=== PATIENT | male | born 1945 | race Caucasian/White ===

== ENCOUNTER 2017-05-27 14:19 | Inpatient (IN) | payer MEDICARE, BC ==
[~2017-05-27] VITALS: Ht 177.8 cm; Wt 108.9 kg
--- NOTE | 2017-05-27 14:45 | NUR ---
DR ALVAREZ AT THE BEDSIDE FOR EVAL AND EXAM.
[2017-05-27] MEDS ORDERED: OCTREOTIDE ACETATE 100 MCG/1 MLVIAL SQ STA (14:51)
[2017-05-27 15:10] LABS: BASOPHILS # (AUTO) 0.1 K/uL (0.0-8.0); BASOPHILS % (AUTO) 1.1 % (0.0-2.0); EOSINOPHILS # (AUTO) 0.1 K/uL (0.0-0.7); EOSINOPHILS % (AUTO) 1.3 % (0.0-7.0); HEMATOCRIT 35.8 % (31.2-41.9); HEMOGLOBIN 11.4 g/dL (10.9-14.3); LYMPHOCYTES # (AUTO) 0.3 K/uL (20.0-40.0); LYMPHOCYTES % (AUTO) 5.8 % (20.5-51.5); MEAN CORPUSCULAR HEMOGLOBIN 28.8 uug (24.7-32.8); MEAN CORPUSCULAR HGB CONC 32 g/dL (32.3-35.6); MEAN CORPUSCULAR VOLUME 90.4 fL (75.5-95.3); MONOCYTES # (AUTO) 1.1 K/uL (2.0-10.0); MONOCYTES % (AUTO) 19.5 % (0.0-11.0); NEUTROPHILS # (AUTO) 4.2 K/uL (1.8-8.9); NEUTROPHILS % (AUTO) 72.3 % (38.5-71.5); PLATELET COUNT (AUTO) 156 K/uL (179-408); RED BLOOD CELL COUNT(AUTO) 3.96 MIL/uL (3.63-4.92); WHITE BLOOD COUNT (AUTO) 5.8 K/uL (3.8-11.8)
[2017-05-27] MEDS ORDERED: OCTREOTIDE ACETATE 500 MCG/1 ML VIAL ONE (15:22)
[2017-05-27 15:24] LABS: BILIRUBIN,TOTAL 1.1 mg/dL (0.2-1.0); CREATININE 6.1 mg/dL (0.6-1.3); POTASSIUM 4.4 mmol/L (3.5-5.1); TOTAL PROTEIN, SERUM 6.2 g/dL (6.4-8.2)
[2017-05-27] MEDS ORDERED: CALC0.253 PO (15:54)
[2017-05-27] MEDS ORDERED: VIT1CAPS9 PO (15:54)
[2017-05-27] MEDS ORDERED: PLAVIX PO (15:54)
[2017-05-27] MEDS ORDERED: CHOL200026 PO (15:54)
[2017-05-27] MEDS ORDERED: AMBIEN PO (15:54)
[2017-05-27] MEDS ORDERED: DIGOXIN PO (15:54)
[2017-05-27] MEDS ORDERED: SIMV40TA5 PO (15:54)
[2017-05-27] MEDS ORDERED: TRAZODONE PO (15:54)
[2017-05-27] MEDS ORDERED: METOPROLOL PO (15:54)
[2017-05-27] MEDS ORDERED: VITA400C68 PO (15:54)
[2017-05-27] MEDS ORDERED: GLYB5TAB7 PO (15:54)
[2017-05-27] MEDS ORDERED: LANTUS (15:54)
[2017-05-27] MEDS ORDERED: ELIQUIS PO (15:54)
--- NOTE | 2017-05-27 16:03 | NUR ---
[facility] SWAB COLLECTED AND SENT TO LAB. BELONGING LIST COMPLETED.
[2017-05-27 16:19] LABS: BAND % (MANUAL) 2 % (0-10); BASOPHILS % (MANUAL) 1 % (0-2); EOSINOPHILS % (MANUAL) 1 % (0-8); LYMPHOCYTES % (MANUAL) 6 % (20-40); MONOCYTES % (MANUAL) 17 % (2-10); NEUTROPHILS % (MANUAL) 73 % (42-75)
--- NOTE | 2017-05-27 16:45 | NUR ---
ADMITTED FROM HOME A 71 YO MALE WITH ADM DX OF HYPOGLYCEMIA A/A ORIENTED X4, WARM AND DRY SKIN WITH SS OF DISTRESS. DR OH NOTIFIED OF ADM WITH ORDERS. ADMISSION ASSESSMENT DONE. CONTROLLED AFIB ON MONITOR
[2017-05-27 17:08] VITALS: BP 144/83
[2017-05-27] MEDS ORDERED: ACETAMINOPHEN 325 MG TABLET PO PRN (17:45)
[2017-05-27] MEDS ORDERED: ONDANSETRON 4 MG/2 ML VIAL IV PRN (17:45)
[2017-05-27] MEDS ORDERED: DEXTROSE 50% 50 ML DISP.SYRIN IV PRN (17:45)
[2017-05-27] MEDS: BLOOD SUGAR DIAGNOSTIC 1 EACH STRIP VI SCH ×2 (17:52→21:07)
--- NOTE | 2017-05-27 19:10 | NUR ---
Received patient awake during initial rounds. Denies any pain/discomforts at this time. No s/s of hypo/hyperglycemia. AVA AVF dressing dry and intact. Continue care as planned.
[2017-05-27 20:11] VITALS: BP 147/86
--- NOTE | 2017-05-27 20:35 | NUR ---
Family at bedside.
[2017-05-27] MEDS: METOPROLOL TARTRATE 25 MG TABLET PO SCH (21:08)
[2017-05-27] MEDS: SIMVASTATIN 40 MG TABLET PO SCH (21:10)
[2017-05-27] MEDS: INSULIN REGULAR, HUMAN 300 UNIT/3 ML VIAL SQ PRN (21:13)
[2017-05-27] MEDS: ZOLPIDEM 5 MG TABLET PO PRN (21:15)
[2017-05-28] VITALS: BP 143/84
[2017-05-28 04:00] VITALS: BP 135/84
--- NOTE | 2017-05-28 04:25 | NUR ---
In and out his room. Quite confused and disoriented. Re oriented to place and situation. Several times he kept removing his monitor box. Close supervision rendered.
--- NOTE | 2017-05-28 05:50 | NUR ---
BS 37mg/dl. [place] juice given . Will recheck BS after 30 minutes. Pt denies any s/s of hypoglycemia
[2017-05-28] MEDS: BLOOD SUGAR DIAGNOSTIC 1 EACH STRIP VI SCH ×5 (06:27→21:16)
--- NOTE | 2017-05-28 06:29 | NUR ---
BS now 94 mg/dl. Denies any s/s . Will endorse to oncoming shift.
[2017-05-28 06:56] LABS: BASOPHILS # (AUTO) 0.1 K/uL (0.0-8.0); BASOPHILS % (AUTO) 1.4 % (0.0-2.0); EOSINOPHILS # (AUTO) 0.1 K/uL (0.0-0.7); EOSINOPHILS % (AUTO) 0.9 % (0.0-7.0); HEMATOCRIT 37.5 % (36.7-47.1); HEMOGLOBIN 12.1 g/dL (12.5-16.3); LYMPHOCYTES # (AUTO) 0.6 K/uL (20.0-40.0); LYMPHOCYTES % (AUTO) 8.5 % (20.5-51.5); MEAN CORPUSCULAR HEMOGLOBIN 29.3 uug (23.8-33.4); MEAN CORPUSCULAR HGB CONC 32 g/dL (32.5-36.3); MEAN CORPUSCULAR VOLUME 90.4 fL (73.0-96.2); MONOCYTES # (AUTO) 1.6 K/uL (2.0-10.0); MONOCYTES % (AUTO) 24.1 % (0.0-11.0); NEUTROPHILS # (AUTO) 4.4 K/uL (1.8-8.9); NEUTROPHILS % (AUTO) 65.1 % (38.5-71.5); PLATELET COUNT (AUTO) 188 K/uL (152-348); RED BLOOD CELL COUNT(AUTO) 4.15 MIL/uL (4.06-5.63); WHITE BLOOD COUNT (AUTO) 6.8 K/uL (3.6-10.2)
[2017-05-28 07:50] LABS: THYROID STIMULATING HORMONE 1.864 mIU/mL (0.358-3.740)
--- NOTE | 2017-05-28 08:00 | NUR ---
PATIENT CONTINUE TO BE VERY CONFUSED, TRIED TO LEAVE THE UNIT REDIRECTED TO ROOM. NO SS OF PAIN OR DISTRESS. BS 46 WARM AND DRY SKIN APPLE JUICE WITH SUGAR GIVEN AND OBSERVE.
[2017-05-28] MEDS: METOPROLOL TARTRATE 25 MG TABLET PO SCH ×2 (08:43→20:41)
[2017-05-28] MEDS: CALCITRIOL 0.25 MCG CAPSULE PO SCH (08:43)
[2017-05-28] MEDS ORDERED: APIXABAN 5 MG TABLET PO SCH (09:00)
[2017-05-28] MEDS ORDERED: CLOPIDOGREL 75 MG TABLET PO SCH (09:00)
--- NOTE | 2017-05-28 09:00 | NUR ---
BS RECHECKED 92, REMAINS ASYMPTOMATIC. ATE 100% OF BREAKFAST. REMAINS AFIB ON MONITOR (CONTROLLED) DENIES PAIN
[2017-05-28 09:15] LABS: BILIRUBIN,TOTAL 0.9 mg/dL (0.2-1.0); CREATININE 7.2 mg/dL (0.6-1.3); MAGNESIUM 2.3 mg/dL (1.8-2.4); PHOSPHOROUS 7.4 mg/dL (2.5-4.9); POTASSIUM 5.4 mmol/L (3.5-5.1); TOTAL PROTEIN, SERUM 6.8 g/dL (6.4-8.2)
[2017-05-28 09:36] LABS: DIGOXIN 0.6 ng/mL (0.9-2.0)
--- NOTE | 2017-05-28 10:30 | NUR ---
HD STARTED AT BEDSIDE, SEEN ALSO BY DR OH AND DR TELLEZ SEE NOTES
[2017-05-28 11:04] VITALS: BP 138/72
[2017-05-28 11:11] LABS: LYMPHOCYTES % (MANUAL) 3 % (20-40); MONOCYTES % (MANUAL) 23 % (2-10); NEUTROPHILS % (MANUAL) 74 % (42-75)
--- NOTE | 2017-05-28 13:00 | NUR ---
HD COMPLETED PATIENT TOLERATED PROCEDURE WELL
[2017-05-28] MEDS: DIGOXIN 125 MCG TABLET PO SCH (13:54)
[2017-05-28 15:29] VITALS: BP 150/84
--- NOTE | 2017-05-28 15:42 | NUR ---
PATIENT VERY CONFUSED AND TRIED TO GET OFF THE UNIT, PULLED HL AND HEART MONITOR PLACED ON 1:1 SITTER AND PLACED CLOSE TO NURSING STATION. NOTIFIED OF ROOM CHANGE AND PT STATUS. AGREED TO BE MOVED TO ROOM 209
[2017-05-28 19:00] VITALS: BP 145/88
[2017-05-28] MEDS: APIXABAN 5 MG PO SCH (19:52)
[2017-05-28] MEDS: SIMVASTATIN 40 MG TABLET PO SCH (20:40)
[2017-05-28] MEDS ORDERED: TRAZODONE 50 MG TABLET PO SCH (21:00)
--- NOTE | 2017-05-28 22:00 | NUR ---
pt is restless. continually trying to get out of bed. needs frequent redirection. PRN ambien was given at this time.
--- NOTE | 2017-05-28 22:00 | NUR ---
received to care, lying in bed, family at bedside, pleasant upon approach. compliant with staff direction. awake overnight monitor shows controlled a fib, in the 80s. 1;1 sitter remains at bedside, for safety. as of 2200, he emains awake. no distress noted.
[2017-05-28] MEDS: Z GUARD REMEDY PASTE 57 GM TUBE TOP SCH (22:45)
[2017-05-28] MEDS: ZOLPIDEM 5 MG TABLET PO PRN (22:46)
--- NOTE | 2017-05-28 23:00 | NUR ---
appears to be asleep. no distress noted. sitter remains at side.
[2017-05-29] VITALS: BP 134/79
--- NOTE | 2017-05-29 01:54 | NUR ---
continues to wake up intermittently and get up, but responds well to redirection. currently lying in bed. will continue to monitor closely.
[2017-05-29 04:00] VITALS: BP 120/81
[2017-05-29] MEDS: BLOOD SUGAR DIAGNOSTIC 1 EACH STRIP VI SCH ×3 (06:48→11:39)
--- NOTE | 2017-05-29 06:48 | NUR ---
AM BLOOD SUGAR IS 55. ORANGE JUICE GIVEN. WILL MONITOR CLOSELY.
[2017-05-29 06:51] LABS: BASOPHILS # (AUTO) 0.1 K/uL (0.0-8.0); BASOPHILS % (AUTO) 1.5 % (0.0-2.0); EOSINOPHILS # (AUTO) 0.1 K/uL (0.0-0.7); EOSINOPHILS % (AUTO) 1.7 % (0.0-7.0); HEMATOCRIT 38.1 % (36.7-47.1); HEMOGLOBIN 12.2 g/dL (12.5-16.3); LYMPHOCYTES # (AUTO) 1.1 K/uL (20.0-40.0); LYMPHOCYTES % (AUTO) 17.3 % (20.5-51.5); MEAN CORPUSCULAR HEMOGLOBIN 29.1 uug (23.8-33.4); MEAN CORPUSCULAR HGB CONC 32 g/dL (32.5-36.3); MEAN CORPUSCULAR VOLUME 90.7 fL (73.0-96.2); MONOCYTES # (AUTO) 1.6 K/uL (2.0-10.0); MONOCYTES % (AUTO) 25.4 % (0.0-11.0); NEUTROPHILS # (AUTO) 3.5 K/uL (1.8-8.9); NEUTROPHILS % (AUTO) 54.1 % (38.5-71.5); PLATELET COUNT (AUTO) 185 K/uL (152-348); WHITE BLOOD COUNT (AUTO) 6.4 K/uL (3.6-10.2)
[2017-05-29 07:25] VITALS: BP 136/78
--- NOTE | 2017-05-29 07:28 | NUR ---
RECEIVED SHIFT REPORT FROM BEATER HEAD NURSE. PATIENT RESTING IN BED AT THIS TIME, 1:1 SITTER AT BEDSIDE FOR SAFETY. PATIENT IS CONFUSED, NON-COMPLIANT, AND IRRITABLE. BLOOD SUGAR 56 THIS MORNING. WILL CONTINUE TO MONITOR BLOOD SUGAR. PATIENT ALSO REFUSES TO HAVE TELEMETRY LEADS ON. ATTEMPTED TO REORIENT, RE-EDUCATE ABOUT IMPORTANCE OF BEING ON TELEMETRY TECHNICIAN, PATIENT CONTINUES TO REFUSE. STABLE CONDITION AT THIS TIME, NO S/S OF DISTRESS. BED IN LOCKED/LOW POSITION, SIDE RAILS UP X2, BED ALARM ON, CALL LIGHT WITHIN REACH.
--- NOTE | 2017-05-29 07:31 | NUR ---
BLOOD SUGAR IS NOW 56. A SECOND ORANGE JUICE WAS GIVEN
[2017-05-29 07:36] LABS: THYROID STIMULATING HORMONE 2.288 mIU/mL (0.358-3.740)
[2017-05-29 07:57] LABS: BILIRUBIN,TOTAL 0.8 mg/dL (0.2-1.0); CREATININE 7.1 mg/dL (0.6-1.3); MAGNESIUM 2.3 mg/dL (1.8-2.4); PHOSPHOROUS 6.7 mg/dL (2.5-4.9); POTASSIUM 4.5 mmol/L (3.5-5.1); TOTAL PROTEIN, SERUM 6.7 g/dL (6.4-8.2)
[2017-05-29] MEDS: METOPROLOL TARTRATE 25 MG TABLET PO SCH (08:45)
[2017-05-29] MEDS: CALCITRIOL 0.25 MCG CAPSULE PO SCH (08:45)
[2017-05-29] MEDS: APIXABAN 5 MG PO SCH (08:53)
[2017-05-29] MEDS: DIGOXIN 125 MCG TABLET PO SCH (08:53)
--- NOTE | 2017-05-29 09:00 | NUR ---
BLOOD SUGAR IMPROVED TO 123 AFTER PT FINISHED EATING BREAKFAST. INSULIN NOT ADMINISTERED. PATIENT IN STABLE CONDITION, NO S/S OF DISTRESS. VITALS ARE STABLE.
[2017-05-29] MEDS: Z GUARD REMEDY PASTE 57 GM TUBE TOP SCH (09:08)
[2017-05-29 11:15] LABS: LYMPHOCYTES % (MANUAL) 23 % (20-40); MONOCYTES % (MANUAL) 6 % (2-10); NEUTROPHILS % (MANUAL) 71 % (42-75)
[2017-05-29 11:35] VITALS: BP 143/85
[2017-05-29] MEDS: INSULIN REGULAR, HUMAN 300 UNIT/3 ML VIAL SQ PRN (11:42)
--- NOTE | 2017-05-29 12:28 | NUR ---
PATIENT DISCHARGED HOME AT THIS TIME IN STABLE CONDITION, NO S/S OF DISTRESS, VITAL SIGNS STABLE. BELONGINGS CHECKLIST CHECKED, COMPLETED, AND SIGNED BY PATIENT. ID BAND TAKEN OFF FROM PATIENT. NO IV ACCESS WAS NOTED BESIDES AV SHUNT. BLOOD SUGAR MAINTAINED. PATIENT'S PICKED UP PATIENT IN FRONT LOBBY ENTRANCE AND LEFT SAFELY THROUGH PRIVATE CAR. WHEELCHAIR BROUGHT BACK UP TO 2ND FLOOR.
== END 2017-05-29 12:50 | disposition home or self-care (01) | DRG 638 ==
LOC: ER 14:19 → EDSEX 14:19 → TELE 16:31 → TELE-TD 16:52 → TELE 17:50
PROVIDERS: ADMIT Nurse Practitioner Acute Care; ATTEND Nurse Practitioner Acute Care
PROC: 5A1D70Z Performance of Urinary Filtration, Intermittent, Less than 6 Hours Per Day (ICD-10-PCS; principal; 2017-05-28)
DX: E11.649 Type 2 diabetes mellitus with hypoglycemia without coma (principal); I12.0 Hypertensive chronic kidney disease with stage 5 chronic kidney disease or end stage renal disease; D68.59 Other primary thrombophilia; D69.6 Thrombocytopenia, unspecified; E11.22 Type 2 diabetes mellitus with diabetic chronic kidney disease; E83.52 Hypercalcemia; R56.9 Unspecified convulsions; N18.6 End stage renal disease; I48.91 Unspecified atrial fibrillation; Z99.2 Dependence on renal dialysis; Z79.4 Long term (current) use of insulin; E78.5 Hyperlipidemia, unspecified; M54.30 Sciatica, unspecified side; I25.10 Atherosclerotic heart disease of native coronary artery without angina pectoris; Z95.5 Presence of coronary angioplasty implant and graft; Z79.01 Long term (current) use of anticoagulants; Z79.02 Long term (current) use of antithrombotics/antiplatelets; N25.81 Secondary hyperparathyroidism of renal origin; Z79.899 Other long term (current) drug therapy; D63.1 Anemia in chronic kidney disease
CPT/HCPCS: 36415; 71045; 82747; 83735; 84100; 84443; 85014; 85025; 86592; 87070; 90937; 93005; A4663; J1815; J2354